=== PATIENT | male | born 1970 | race Caucasian/White ===

== ENCOUNTER 2019-04-24 21:04 | Observation (INO) | payer OTHER ==
[~2019-04-24] VITALS: Ht 167.6 cm; Wt 78.8 kg
[2019-04-24 21:11] VITALS: BP 115/79
[2019-04-24 21:36] LABS: ABSOLUTE BASOPHILS 0.1 thou/uL (0.0-0.2); ABSOLUTE EOSINOPHILS 0.3 thou/uL (0.0-0.7); ABSOLUTE LYMPHOCYTES 2.9 thou/uL (0.8-5.3); ABSOLUTE MONOCYTES 0.6 thou/uL (0.0-1.2); ABSOLUTE NEUTROPHILS 4.6 thou/uL (1.6-8.1); BASOPHILS 1.5 %; HEMATOCRIT 43.3 % (42.0-52.0); HEMOGLOBIN 14.8 gm/dL (14.0-18.0); LYMPHOCYTES 34.4 %; MCH 29.5 pg (26.0-34.0); MCHC 34.1 g/dL (28.0-37.0); MCV 86.6 fL (80.0-100.0); MONOCYTES 7.1 %; NUCLEATED RBCS 0 /100WBC; PLATELET COUNT* 272 thou/uL (150-400); RDW-CV 12.9 % (10.5-14.5); WBC 8.5 thou/uL (4.0-11.0)
[2019-04-24 22:02] LABS: ALBUMIN 3.9 g/dL (3.4-5.0); CALCIUM 8.6 mg/dL (8.5-10.1); CREATININE 1.1 mg/dL (0.6-1.3); POTASSIUM 4.3 mmol/L (3.5-5.1); TOTAL BILIRUBIN 0.4 mg/dL (<0.1-1.0); TOTAL PROTEIN 7.3 g/dL (6.4-8.2)
[2019-04-24 23:53] VITALS: BP 111/74
[2019-04-25 00:15] VITALS: BP 118/75
[2019-04-25 03:44] VITALS: BP 115/70
[2019-04-25 08:00] VITALS: BP 123/84
--- NOTE | 2019-04-25 08:37 | NUR ---
REPORT RECIEVED FROM ER. PT ORIENTED TO ROOM, CALL LIGHT SHOWN, FALL AGREEMENT GONE OVER, PT STATED UNDERSTANDING. IV PATENT. ADMISSION DOCUMENTED. WILL CONTINUE WITH PLAN OF CARE.
--- NOTE | 2019-04-25 10:05 | EKG ---
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: [place] : 1970 Requested By: Yang Stoner Order Number: [id number] MD: Nakul Xavier Measurements Intervals [place] Rate: 65 P: 63 IN: 213 QRS: 38 QRSD: 91 T: 60 QT: 408 QTc: 425 Interpretive Statements Sinus rhythm Prolonged [place] interval Probable left atrial enlargement No previous ECG available for comparison Electronically Signed On 04-25-2019 10:05:13 RESEARCH MANUFACTURING OPERATOR by Nakul Xavier [email or web address] <ELECTRONICALLY SIGNED> By: Nakul Xavier MD, [facility] 04/25/19 1005 2109 08 Nakul Xavier MD, FACC /EPI
[2019-04-25 11:30] VITALS: BP 123/84
--- NOTE | 2019-04-25 11:37 | NUR ---
ASSUMED CARE OF PT AT 0730. PT A&OX4, DENIES ANY PAIN, DIZZINESS, SYNCOPAL EPISODES OR SHORTNESS OF BREATH AT THIS TIME. TRACING SR ON THE GLOBAL LOGISTICS ANALYST. ON RA SAT UPPER 90'S. PT UP WITH SBA TO BATHROOM. CARDIOLOGY CONSULT IN PLACE. DR PRADHAN HERE TO SEE PT- OKAY FOR DISCHARGE FROM CARDIOLOGY STAND POINT. AWAITING DR DRAPER TO ROUND. PT GOAL FOR TODAY IS REMAIN FREE FROM DIZZINESS AND SYNCOPAL EPISODES AND DISCHARGE PLANNING TO HOME. AM ASSESSMENT CHARTED. MEDICATIONS PER JUN. PT REPOSITIONS SELF. HOURLY ROUNDING OBSERVED. BED IN LOW POSITION. CALL LIGHT WITHIN REACH. WILL CONTINUE PLAN OF CARE.
--- NOTE | 2019-04-25 13:02 | NUR ---
DISCHARGE ORDERS RECEIVED. DISCHARGE INSTRUCTIONS, CARE NOTES AND FOLLOW UP APPTS GIVEN TO PT. PT COMMUNICATES UNDERSTANDING OF DISCHARGE TEACHING. IV AND ENTRY LEVEL BUYER REMOVED. PT DISCHARGED WITH ALL BELONGINGS AND PAPERWORK VIA WHEELCHAIR WITH NURSING STAFF TO SPOUSE OWN PERSONAL VEHICLE.
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
== END 2019-04-25 13:00 | disposition home or self-care (01) ==
LOC: M.ERS 21:04 → M.2W 23:07 → M.TBA-ER 23:07 → M.2W 04-25 00:03
PROVIDERS: Emergency Medicine Emergency Medical Services; ADMIT Internal Medicine
DX: R55 Syncope and collapse (principal)

== ENCOUNTER → 2020-08-04 | Outpatient (CLI) | payer OTHER ==
[2020-08-04] VITALS (23 sets, daily range): BP systolic 91–1400; BP diastolic 41–95
[~2020-08-04] MED LIST: PRILOSEC OTC20 MG PO; WELLBUTRIN XL150 MG PO
--- NOTE | 2020-08-07 12:39 | PROC ---
[address] [address] PROCEDURE REPORT Name: SEAN MILLER Room: [facility].#: [id number] Admission: 08/04/20 Attend Phys: Nakul Xavier MD, F Discharge: Date of : 68 Report #: [id number] THIS REPORT FOR: cc: Cesar Myrick MD,Cesar Xavier,Nakul Diaz MD [facility] ~ DATE OF SERVICE: 08/04/2020 TITLE OF PROCEDURE: Head upright tilt-table testing using sublingual nitroglycerin. INDICATIONS: Tilt-table testing was requested in this patient with a history of syncope. DESCRIPTION OF PROCEDURE: The patient was brought to the cardiac catheterization lab and was placed in the supine position on the tilt table. The initial blood pressure was 119/81 with a pulse of 74. ECG monitoring patches were applied. The patient was in sinus rhythm at the start of the procedure. The patient was then placed into the 70-degree head upright position. At that time, his blood pressure was 116/82, pulse of 81, and he was in a sinus rhythm without complaints. The patient denied any complaints at this time. After 10 minutes, his blood pressure was 132/84, pulse of 82 and he is in sinus rhythm. After 20 minutes, the patient had a blood pressure of 124/86 with a pulse of 86 and he was in sinus rhythm. The patient then administered 0.4 mg of nitroglycerin sublingually. Initially, he had no complaints. However, after 3 minutes, the patient felt flushed. At that time, his blood pressure was 138/84, his pulse went up to 100 and he was in sinus tachycardia. The patient then developed bradycardia and had an episode of asystole and became unresponsive. The patient then placed back into the supine position after several seconds of asystole. His heart rate came back to 63, blood pressure 113/66. He was given saline intravenously. After 10 minutes, blood pressure was 96/66, pulse 64, and he was in sinus rhythm. The patient felt somewhat weak. Ten minutes later, blood pressure was 96/64, pulse 64, and he was in sinus rhythm. He had some nausea. The test was then terminated. IMPRESSION: 1. Tilt table test positive for neurocardiogenic syncope. 2. The patient had predominantly cardioinhibitory response with several seconds of asystole following administration of sublingual nitroglycerin. 3. There was no significant vasodepressor response [place] [address] PROCEDURE REPORT Name: SEAN MILLER Room: [facility]#: [id number] Admission: 08/04/20 Attend Phys: Nakul Xavier MD, F Discharge: Date of : 68 Report #: [id number] IMPRESSION: Based on the results of the study, a permanent pacemaker was recommended to the patient and will be scheduled at a later time. <ELECTRONICALLY SIGNED> By: Nakul Xavier MD, FACC 08/07/20 1239 1536 1958Daviluna Xavier MD, [facility] /nt
== END | disposition home or self-care (01) ==
LOC: M.CL 08:56
PROVIDERS: ATTEND Internal Medicine Cardiovascular Disease
DX: R55 Syncope and collapse (principal); Z79.899 Other long term (current) drug therapy; Z88.0 Allergy status to penicillin

== ENCOUNTER → 2020-10-06 | Outpatient (CLI) | payer OTHER ==
[2020-10-06] VITALS (7 sets, daily range): BP systolic 110–135; BP diastolic 77–82
[~2020-10-06] VITALS: Ht 167.6 cm; Wt 77.1 kg
[2020-10-06 08:32] LABS: HEMATOCRIT 45.9 % (42.0-52.0); HEMOGLOBIN 15.9 gm/dL (14.0-18.0); MCH 29.9 pg (26.0-34.0); MCHC 34.7 g/dL (28.0-37.0); MCV 86.2 fL (80.0-100.0); MPV 9.4 fl. (7.2-11.1); RBC 5.33 mil/uL (4.50-6.00); RDW-CV 12.8 % (10.5-14.5); WBC 8.3 thou/uL (4.0-11.0)
[2020-10-06 08:36] LABS: URINE BILIRUBIN NEGATIVE (Negative); URINE BLOOD TRACE (Negative); URINE CLARITY CLEAR; URINE COLOR YELLOW; URINE GLUCOSE-RANDOM NEGATIVE (Negative); URINE KETONES NEGATIVE (Negative); URINE LEUKOCYTES NEGATIVE (Negative); URINE NITRITE NEGATIVE (Negative); URINE PROTEIN NEGATIVE (Negative); URINE SPECIFIC GRAVITY >= 1.030 (1.005-1.030); URINE UROBILINOGEN 0.2 E.U./dl (0.2-1.0)
[2020-10-06 08:41] LABS: CALCIUM 8.9 mg/dL (8.5-10.1); CREATININE 0.9 mg/dL (0.6-1.3); POTASSIUM 3.9 mmol/L (3.5-5.1)
[2020-10-06 08:44] LABS: APTT 25.7 Seconds (25.0-31.3); PROTIME 10.2 Seconds (9.20-11.50)
--- NOTE | 2020-10-06 12:04 | EKG ---
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1970 Requested By: Nakul Xavier Order Number: [id number] Reading MD: Nakul Xavier Measurements Intervals [place] Rate: 75 P: 55 [place]: 208 QRS: 17 QRSD: 95 T: 56 QT: 371 QTc: 415 Interpretive Statements Sinus rhythm Borderline prolonged [place] interval Low voltage, precordial leads RSR' in V1 or V2, probably normal variant Compared to ECG 04/24/2019 21:09:36 Low QRS voltage now present Electronically Signed On 10-06-2020 12:04:20 CDT by Nakul Xavier [email or web address] <ELECTRONICALLY SIGNED> By: Nakul Xavier MD, [facility] 10/06/20 1204 0846 0846 Nakul Xavier MD, [facility] /EPI
--- NOTE | 2020-10-06 14:49 | EKG ---
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
--- NOTE | 2020-10-06 14:50 | EKG ---
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: : 1970 Requested By: Nakul Xavier Order Number: [id number] Reading MD: Nakul Xavier Measurements Intervals [place] Rate: 84 P: [place]: 123 QRS: -78 QRSD: 114 T: 57 QT: 379 QTc: 449 Interpretive Statements Atrial-ventricular dual-paced complexes No further analysis attempted due to paced rhythm Compared to ECG 10/06/2020 14:04:43 av paced rhythm noted Electronically Signed On 10-06-2020 14:50:01 CDT by Nakul Xavier [email or web address] <ELECTRONICALLY SIGNED> By: Nakul Xavier MD, [facility] 10/06/20 1450 1406 1406 Nakul Xavier MD, [facility] /EPI
--- NOTE | 2020-10-06 16:32 | CARD ---
[address] [address] CARDIAC CATH REPORT Name: SEAN MILLER Room: [facility] [place].#: [id number] Admission: 10/06/20 Attend Phys: Nakul Xavier MD, F Discharge: Date of : 68 Report #: [id number] THIS REPORT FOR: cc: Fernando Paul MD, Matthew D MD Blick, David R. MD [facility] ~ APPROVED REPORT Study performed: 10/06/2020 08:55:25 Patient Status: Out-Patient Room #: Event Personnel: Jose Luis Corona RTR Monitor, James DavidsonubElbert Sujita RN RN, Nakul Xavier Propagation Manager Exam: Insertion of Dual Chamber Permanent Pacemaker Indications: Sick Sinus Syndrome The patient is a 50 year-old male with a history of Syncope. Conscious Sedation Start time: 956 End Time: 1127 Fentanyl 75 mcg Versed 5 mg Implanted Devices: Medtronic [place] S DR CHRISTAL Eng, Ser# [id number] Procedure The patient underwent informed consent. We discussed the details of the procedure including the risks, which include, but not limited to bleeding, infection, vascular damage, cardiac perforation, and pneumothorax. He understood these risks and was willing to proceed. As such, he was brought to the EP/Cardiac Catheterization laboratory in a fasting and sedated state and prepped and draped in a sterile fashion, received IV antibiotics prior to initiation of the procedure and a venogram was performed showing patency of the left axillary vein. The patient underwent conscious sedation, with no related complications. The patient was brought to the EP/Cardiac Catheterization laboratory and the left chest and shoulder were prepped and draped in a sterile manner. During this case, Fluoroscopy and visipaque 20cc were used for imaging. IV conscious sedation was used [place] [address] CARDIAC CATH REPORT Name: PAULSEAN Room: [facility].#: [id number] Admission: 10/06/20 Attend Phys: Nakul Xavier MD, F Discharge: Date of : 68 Report #: [id number] monitoring and was performed in the presence of a registered nurse who was an independent trained observer other than the physician performing the procedure. The left subclavian region was infiltrated with 2% Lidocaine with Epinephrine subcutaneous anesthesia. A transverse incision was made in the left upper chest cavity. The subcutaneous pocket was formed via blunt dissection. Percutaneous venous access was achieved and an introducer sheath was inserted into the left Subclavian vein. Sheaths were positions using the modified Seldinger technique Through the introducer sheaths the atrial and ventricular lead wires were positioned in the right atrial appendage and right ventricular apex respectively. Utilizing fluoroscopic guidance, the atrial and ventricular lead wires were advanced over the wires and positioned in the right atria and right ventricle respectively. Capturing and sensing thresholds were verified. Electrode Parameters P Wave: 2.3 mv R Wave: 8.5 mv Atrial Threshold: 0.75 v @ 0.4 ms Ventricular Threshold: 0.5 v @ 0.4 ms Atrial Resistance: 608 ohm Ventricular Resistance: 836 ohm Dual Chamber The atrial and ventricular leads were then secured using 0 silk sutures. The subcutaneous pocket was irrigated with vancomycin antibiotic solution.The atrial and ventricular leads were attached to the appropriate receptacles on the pulse generator and set screws firmly tightened to insure adequate contact and stability. The lead and pulse generator were placed into the subcutaneous pocket. Sharp and sponge counts were confirmed to be correct. At this time the pocket was closed subcutaneously with a 0 Vicryl and the skin was closed with a 4.0 Vicryl. The operative site was dressed in sterile fashion with skin affix and the patient was transferred to the floor in stable condition. Complications The patient tolerated the procedure well and there were no complications associated with the procedure. Findings Specimens Removed: No Estimated Blood Loss: less than 5 [place] [address] CARDIAC CATH REPORT Name: SEAN MILLER [facility] [id number] Admission: 10/06/20 Attend Phys: Nakul Xavier MD, F Discharge: Date of : 68 Report #: [id number] Conclusion successfu placement of a dual chamber mri compatible medtronic pacemaker and leads. <ELECTRONICALLY SIGNED> By: Nakul Xavier MD, FACC 10/06/20 1632 163 1632Dbhanu Xavier MD, FACC /INF
--- NOTE | 2020-10-06 16:39 | H ---
[place] [address] HISTORY AND PHYSICAL Name: SEAN MILLER [id number] Admission: 10/06/20 Attend Phys: Nakul Xavier MD, F Discharge: Date of : 68 Report #: [id number] THIS REPORT FOR: cc: Fernando Paul MD, Matthew D MD Blick, David R. MD [facility] ~ DOC #: [id number] cc: Fernando Xavier MD [facility] DATE OF SERVICE: 10/06/2020 HISTORY OF PRESENT ILLNESS: The patient is a 50-year-old white male who was brought to the outpatient department to undergo implantation of a permanent dual chamber pacemaker. The patient has a several year history of syncopal spells. He has never hurt himself. He actually can feel the episodes coming on and occasionally will have to lie down. One episode occurred while he was at a restaurant, was actually admitted here to [facility]. Echocardiogram showed normal left ventricular function. A 30-day monitor showed occasional PACs. Vascular screening showed no carotid stenosis and no abdominal aneurysm. He continues to have episodes where he will feel lightheaded and have to lie down. He has had brief loss of consciousness. There is no seizure activity. I saw him in the office on 07/26 and recommended a tilt table test, which was performed as an outpatient here at [facility] on 08/04. During the tilt table, he became unresponsive. He had a several second episode of asystole following administration of sublingual nitroglycerin consistent with a cardioinhibitor response. There was no significant vasodepressor response during tilt table testing. The patient was felt to have sick sinus syndrome and recommended permanent pacemaker implantation. He denies recent fever, bleeding, recent syncope, chest pain, shortness of breath. PAST MEDICAL HISTORY: He has had appendectomy, cholecystectomy. No history of hypertension, diabetes, hyperlipidemia. MEDICATIONS: His only medications include Wellbutrin for anxiety, omeprazole for indigestion. ALLERGIES: HE HAS A PREVIOUS POSSIBLE REACTION TO PENICILLIN YEARS AGO. FAMILY HISTORY: Negative for heart disease. SOCIAL HISTORY: He is . He and his live in a farm outside [place], [place]. 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 He used to chew tobacco. No alcohol abuse. REVIEW OF SYSTEMS: No history of stroke, asthma, liver disease, kidney disease, [place] [address] HISTORY AND PHYSICAL Name: SEAN MILLER Room: [facility]#: [id number] Admission: 10/06/20 Attend Phys: Nakul Xavier MD, F Discharge: Date of : 68 Report #: [id number] cancer, psychiatric illness, chronic skin condition. PHYSICAL EXAMINATION: GENERAL: Middle-aged male, appeared in no distress. VITAL SIGNS: Blood pressure 130/70, pulse 70. HEENT: He was anicteric. Conjunctivae pink. Mucosa membranes moist. NECK: Neck vein is not distended. No carotid bruits. Neck is supple. CHEST: Clear to auscultation. HEART: Regular rate and rhythm. ABDOMEN: Soft. EXTREMITIES: No edema. SKIN: Cool and dry. NEUROLOGIC: Nonfocal. LYMPHATIC: No adenopathy. MUSCULOSKELETAL: No joint effusion. IMPRESSION AND RECOMMENDATION: 1. Sick sinus syndrome. Recommend permanent pacemaker. 2. Vasovagal syncope. Tilt table test showed predominantly cardioinhibitor response after nitroglycerin. 3. Previous history of smokeless tobacco use. 4. Chest pain. Atypical for angina, suspect gastrointestinal. Nakul Xavier MD [facility] LOLA/SAJI <ELECTRONICALLY SIGNED> By: Nakul Xavier MD, [facility] 10/06/20 1639 0826 0933Davíctor Xavier MD, [facility] /nt
== END | disposition home or self-care (01) ==
LOC: M.CL 09-22 09:00
PROVIDERS: ATTEND Internal Medicine Cardiovascular Disease
DX: I49.5 Sick sinus syndrome (principal); R55 Syncope and collapse; Z98.890 Other specified postprocedural states; Z79.899 Other long term (current) drug therapy; Z90.49 Acquired absence of other specified parts of digestive tract; Z87.891 Personal history of nicotine dependence; Z88.0 Allergy status to penicillin